=== PATIENT | female | born 1950 | race Caucasian/White ===

== ENCOUNTER → 2017-01-05 | Outpatient (CLI) | payer BC ==
--- NOTE | 2017-01-05 14:04 | MM ---
Reason for exam: additional evaluation requested from prior study. Last mammogram was performed 1 year ago. History: Patient is postmenopausal, has history of endometrial cancer at age 56, and has history of breast cancer at age 52. Stereotactic core biopsy of the left breast, July 04, 2003. Benign stereotactic core biopsy of the left breast, July 04, 2003. Benign cyst aspiration of the right breast, December 23, 2002. Benign ultrasound-guided core biopsy of the right breast, December 23, 2002. Cyst aspiration of the right breast. 2 core biopsies of the left breast. Excisional biopsy of the left breast. 2 lumpectomies of the left breast. 2 radiation therapies of the left breast. Took hormonal contraceptives for 6 months beginning at age 19. Took antineoplastic for 5 years 5 months beginning at age 52. Physical Findings: Nurse did not find any significant physical abnormalities on exam. [facility] Diagnostic Mammo w CAD FERNANDO Bilateral CC and MLO view(s) were taken. Prior study comparison: January 04, 2016, bilateral MG diagnostic mammo w CAD FERNANDO. January 02, 2015, bilateral MG diagnostic mammo w CAD FER[facility]NDO. January 01, 2014, bilateral MG diagnostic mammo w CAD FERNANDO. There are scattered fibroglandular densities. Right breast upper outer quadrant post therapy change. No significant new findings when compared with previous films. These results were verbally communicated with the patient and result sheet given to the patient on 01/05/17. ASSESSMENT: Benign, BI-RAD 2 RECOMMENDATION: Follow-up diagnostic mammogram of both breasts in 1 year.
== END | disposition home or self-care (01) ==
LOC: RADMAMWWP 11:01
PROVIDERS: ATTEND Radiology Diagnostic Radiology
DX: Z08 Encounter for follow-up examination after completed treatment for malignant neoplasm (principal); Z85.3 Personal history of malignant neoplasm of breast

== ENCOUNTER → 2018-01-08 | Outpatient (CLI) | payer BC ==
--- NOTE | 2018-01-08 11:42 | MM ---
Reason for exam: additional evaluation requested from prior study. Last mammogram was performed 1 year ago. History: Patient is postmenopausal, has history of endometrial cancer at age 56, and has history of breast cancer at age 52. Stereotactic core biopsy of the left breast, July 04, 2003. Benign stereotactic core biopsy of the left breast, July 04, 2003. Benign cyst aspiration of the right breast, December 23, 2002. Benign ultrasound-guided core biopsy of the right breast, December 23, 2002. Cyst aspiration of the right breast. 2 core biopsies of the left breast. Excisional biopsy of the left breast. 2 lumpectomies of the left breast. 2 radiation therapies of the left breast. Took hormonal contraceptives for 6 months beginning at age 19. Took antineoplastic for 5 years 5 months beginning at age 52. Physical Findings: Nurse did not find any significant physical abnormalities on exam. MG 3D Diag Mammo W/Cad FERNANDO Bilateral CC and MLO view(s) were taken. Prior study comparison: January 05, 2017, bilateral MG diagnostic mammo w CAD FERNANDO. January 04, 2016, bilateral MG diagnostic mammo w CAD FERNANDO. There are scattered fibroglandular densities. Stable 5mm circumscribed nodule posterior lateral central right CC view since 2017, benign. Post surgical and post therapy changes left breast.. Stable faint central posterior regional calcifications on the left CC view. No significant new findings when compared with previous films. These results were verbally communicated with the patient and result sheet given to the patient on 01/08/18. ASSESSMENT: Benign, BI-RAD 2 RECOMMENDATION: Follow-up diagnostic mammogram of both breasts in 1 year.
== END | disposition home or self-care (01) ==
LOC: RADMAMWWP 08:58
PROVIDERS: ATTEND Radiology Diagnostic Radiology
DX: Z08 Encounter for follow-up examination after completed treatment for malignant neoplasm (principal); Z85.3 Personal history of malignant neoplasm of breast
CPT/HCPCS: 77062; 77066

== ENCOUNTER → 2019-01-09 | Outpatient (CLI) | payer BC ==
--- NOTE | 2019-01-09 11:06 | MM ---
Reason for exam: additional evaluation requested from prior study. Last mammogram was performed 1 year ago. History: Patient is postmenopausal, has history of endometrial cancer at age 56, and has history of breast cancer at age 52. Stereotactic core biopsy of the left breast, July 04, 2003. Benign stereotactic core biopsy of the left breast, July 04, 2003. Benign cyst aspiration of the right breast, December 23, 2002. Benign ultrasound-guided core biopsy of the right breast, December 23, 2002. Cyst aspiration of the right breast. 2 core biopsies of the left breast. Excisional biopsy of the left breast. 2 lumpectomies of the left breast. 2 radiation therapies of the left breast. Took hormonal contraceptives for 6 months beginning at age 19. Took antineoplastic for 5 years 5 months beginning at age 52. Physical Findings: Nurse did not find any significant physical abnormalities on exam. MG Diagnostic Mammo w CAD FERNANDO Bilateral CC and MLO view(s) were taken. Spot compression CC view(s) were taken of the right breast. Spot compression MLO view(s) were taken of the left breast. Prior study comparison: January 08, 2018, bilateral MG 3d diag mammo w/cad FERNANDO. January 05, 2017, bilateral MG diagnostic mammo w CAD FERNANDO. The breast tissue is heterogeneously dense. This may lower the sensitivity of mammography. Benign appearing bilateral calcifications. Post therapy change on the left. Right central middle depth asymmetry resolves on additional spot compression view. Left superior breast asymmetry resolves on spot compression view. These results were verbally communicated with the patient and result sheet given to the patient on 01/09/19. ASSESSMENT: Benign, BI-RAD 2 RECOMMENDATION: Follow-up diagnostic mammogram of both breasts in 1 year.
== END ==
LOC: RADMAMWWP 10:11
PROVIDERS: ATTEND Radiology Diagnostic Radiology
DX: Z08 Encounter for follow-up examination after completed treatment for malignant neoplasm (principal); Z85.3 Personal history of malignant neoplasm of breast
CPT/HCPCS: 77066

== ENCOUNTER → 2020-01-13 | Outpatient (CLI) | payer BC ==
--- NOTE | 2020-01-14 10:55 | MM ---
Reason for exam: additional evaluation requested from prior study. Last mammogram was performed 1 year ago. History: Patient is postmenopausal, has history of endometrial cancer at age 56, and has history of breast cancer at age 52. Stereotactic core biopsy of the left breast, July 04, 2003. Benign stereotactic core biopsy of the left breast, July 04, 2003. Benign cyst aspiration of the right breast, December 23, 2002. Benign ultrasound-guided core biopsy of the right breast, December 23, 2002. Cyst aspiration of the right breast. 2 core biopsies of the left breast. Excisional biopsy of the left breast. 2 lumpectomies of the left breast. 2 radiation therapies of the left breast. Took hormonal contraceptives for 6 months beginning at age 19. Took antineoplastic for 5 years 5 months beginning at age 52. Physical Findings: Nurse did not find any significant physical abnormalities on exam. MG 3D Diag Mammo W/Cad FERNANDO Bilateral CC and MLO view(s) were taken. Prior study comparison: January 09, 2019, bilateral MG diagnostic mammo w CAD FERNANDO. January 08, 2018, bilateral MG 3d diag mammo w/cad FERNANDO. The breast tissue is heterogeneously dense. This may lower the sensitivity of mammography. Finding #1: There is stable decreased size and architectural distortion in the upper outer quadrant consistent with known lumpectomy changes. Finding #2: There are typically benign round calcifications in both breasts. There is no discrete abnormality. These results were verbally communicated with the patient and result sheet given to the patient on 01/13/20. ASSESSMENT: Benign, BI-RAD 2 RECOMMENDATION: Follow-up diagnostic mammogram of both breasts in 1 year.
== END | disposition home or self-care (01) ==
LOC: RADMAMWWP 08:50
PROVIDERS: ATTEND Radiology Diagnostic Radiology
DX: Z08 Encounter for follow-up examination after completed treatment for malignant neoplasm (principal); Z85.3 Personal history of malignant neoplasm of breast
CPT/HCPCS: 77062; 77066

== ENCOUNTER → 2021-01-13 | Outpatient (CLI) | payer BC ==
--- NOTE | 2021-01-13 11:22 | MM ---
Reason for exam: additional evaluation requested from prior study. Last mammogram was performed 1 year ago. History: Patient is postmenopausal, has history of endometrial cancer at age 56, and has history of breast cancer at age 52. Stereotactic core biopsy of the left breast, July 04, 2003. Benign stereotactic core biopsy of the left breast, July 04, 2003. Benign cyst aspiration of the right breast, December 23, 2002. Benign ultrasound-guided core biopsy of the right breast, December 23, 2002. Cyst aspiration of the right breast. 2 core biopsies of the left breast. Excisional biopsy of the left breast. 2 lumpectomies of the left breast. 2 radiation therapies of the left breast. Took hormonal contraceptives for 6 months beginning at age 19. Took antineoplastic for 5 years 5 months beginning at age 52. Physical Findings: Nurse did not find any significant physical abnormalities on exam. MG 3D Diag Mammo W/Cad FERNANDO Bilateral CC and MLO view(s) were taken. Prior study comparison: January 13, 2020, bilateral MG 3d diag mammo w/cad FERNANDO. January 09, 2019, bilateral MG diagnostic mammo w CAD FERNANDO. There are scattered fibroglandular densities. There are benign appearing round calcifications bilaterally. Post surgical changes left breast. No significant new findings when compared with previous films. These results were verbally communicated with the patient and result sheet given to the patient on 01/13/21. ASSESSMENT: Benign, BI-RAD 2 RECOMMENDATION: Routine screening mammogram of both breasts in 1 year.
== END | disposition home or self-care (01) ==
LOC: RADMAMWWP 10:12
PROVIDERS: ATTEND Family Medicine
DX: R92.1 Mammographic calcification found on diagnostic imaging of breast (principal); Z78.0 Asymptomatic menopausal state; Z79.3 Long term (current) use of hormonal contraceptives; Z85.3 Personal history of malignant neoplasm of breast; Z85.42 Personal history of malignant neoplasm of other parts of uterus
CPT/HCPCS: 77062; 77066